=== PATIENT | female | born 1995 | race African-American/Black ===

== ENCOUNTER 2024-09-22 19:51 | Emergency (ER) | payer MEDICAID ==
[~2024-09-22] VITALS: Ht 157.5 cm; Wt 80.0 kg
[2024-09-22 20:00] VITALS: TEMP 99.9; O2SAT 100
[2024-09-22] MEDS ORDERED: ACETAMINOPHEN 325MG TABLET PO ONE (20:30)
[2024-09-22] MEDS ORDERED: KETOROLAC 30MG/ML VIAL IM ONE (20:30)
[2024-09-22 21:22] LABS: COLOR URINE YELLOW (YELLOW)
[2024-09-22 21:23] LABS: CLARITY URINE CLOUDY (CLEAR); GLUCOSE URINE NEGATIVE (NEGATIVE); KETONES URINE 2+ (NEGATIVE); LEUKOCYTE ESTERASE URINE 3+ (NEGATIVE); NITRITE URINE POSITIVE (NEGATIVE); OCCULT BLOOD URINE 1+ (NEGATIVE); PH URINE 7.5 (4.5-8.0); PROTEIN URINE 1+ (NEGATIVE); SPECIFIC GRAVITY URINE 1.022 (1.005-1.030)
[2024-09-22 21:55] LABS: CHLORIDE 109 mEq/L (98-107); POTASSIUM 3.6 mEq/L (3.5-5.1); SODIUM 139 mEq/L (136-145)
[2024-09-22 21:56] LABS: BACTERIA URINE 1+; RBC URINE 0-2 /hpf (0-2); SQUAMOUS EPITHELIAL CELL URINE 2+ /lpf (RARE/1+); WBC URINE TNTC /hpf (0-2)
[2024-09-22 21:56] LABS: CARBON DIOXIDE 21 mEq/L (21-32)
[2024-09-22 21:57] LABS: CALCIUM 9.4 mg/dL (8.7-10.4)
[2024-09-22] MEDS ORDERED: CEFTRIAXONE SODIUM 1G VIAL IM ONE (22:00)
[2024-09-22 22:01] LABS: CREATININE 0.8 mg/dL (0.6-1.0); GLUCOSE 129 mg/dL (70-105)
[2024-09-22 22:02] LABS: UREA NITROGEN BLOOD 10 mg/dL (9-23)
[2024-09-22 22:03] LABS: ALANINE AMINOTRANSFERASE 30 IU/L (10-49); ALBUMIN 4.6 g/dL (3.2-4.8); ASPARTATE AMINOTRANSFERASE 20 IU/L (<34)
[2024-09-22 22:04] LABS: BILIRUBIN TOTAL 0.9 mg/dL (0.1-1.0); PROTEIN TOTAL 7.7 g/dL (6.0-8.3)
[2024-09-22 22:10] LABS: HCG SCREEN NEGATIVE
[2024-09-22 22:17] LABS: HEMOGLOBIN. 12.7 g/dL (12.0-16.0); MEAN CORPUSCULAR HEMOGLOBIN 28.8 pg (28.0-32.0); MEAN CORPUSCULAR HGB CONC 32.6 g/dL (31.0-37.0); MEAN CORPUSCULAR VOLUME 88.5 fL (81.0-99.0); MEAN PLATELET VOLUME 8.9 fl (7.4-10.4); PLATELET 226 x1000/uL (130-400); RED CELL DISTRIBUTION WIDTH 13.7 % (11.6-14.6); WHITE BLOOD COUNT 17.7 x1000/uL (4.5-11.0)
[2024-09-22 22:18] LABS: DIFFERENTIAL COMMENT 1
[2024-09-22 22:43] LABS: PLATELET ESTIMATE NORMAL
[2024-09-22] MEDS ORDERED: CEFP200T13 MT (22:49)
[2024-09-22] MEDS ORDERED: IBUP-2028 MT (22:49)
[2024-09-22] MEDS ORDERED: TOPUD MT (22:49)
[2024-09-22 23:06] VITALS: BP 133/71; PULSE 100; RESP 16
[2024-09-22] MEDS: KETOROLAC 30MG/ML VIAL IM NR (23:06)
[2024-09-22] MEDS: ACETAMINOPHEN 325MG TABLET PO NR (23:07)
[2024-09-22] MEDS: LIDOCAINE HCL/PF 1% 10 MG/ML 5ML VIAL INFIL ONE (23:18)
[2024-09-22] MEDS: CEFTRIAXONE SODIUM 1G VIAL IM NR (23:18)
== END 2024-09-22 23:23 | disposition home or self-care (01) ==
LOC: ER 19:51
DX: N12 Tubulo-interstitial nephritis, not specified as acute or chronic (principal); Z87.442 Personal history of urinary calculi
CPT/HCPCS: 99285; 76770; 80053; 81003; 84703; 83690; 85025; 87086; 87186; 87077; 36415; 96372; J0696; J1885; J3490